=== PATIENT | female | born 1940 | race Two or more races ===

== ENCOUNTER 2018-07-17 12:54 | Outpatient (CLI) | payer OTHER | END 2018-07-17 13:07 | disposition home or self-care (01) | LOC: NUCLEAR 12:54 | DX: M81.0 Age-related osteoporosis without current pathological fracture (principal) ==

== ENCOUNTER → 2018-12-29 | Outpatient (CLI) | payer OTHER | END | disposition home or self-care (01) | LOC: NUCLEAR 07:00 | DX: C73 Malignant neoplasm of thyroid gland (principal) | CPT/HCPCS: 78815; A9552 ==

== ENCOUNTER 2019-01-29 12:15 | Inpatient (IN) | payer OTHER ==
[~2019-01-29] VITALS: Ht 157.5 cm; Wt 78.0 kg
[2019-01-29] MEDS ORDERED: TOPROL XL100 MG PO (14:26)
[2019-01-29] MEDS ORDERED: LISINOPRIL30 MG PO (14:26)
[2019-01-29] MEDS ORDERED: NORVASC2.5 M1 PO (14:26)
[2019-01-29] MEDS ORDERED: LASIX20 MG PO (14:26)
[2019-01-29] MEDS ORDERED: SYNTHROID112 MCG PO (14:26)
[2019-01-29] MEDS ORDERED: LIPITOR20 MG PO (14:27)
== END 2019-02-01 08:00 | disposition home or self-care (01) | DRG 349 ==
LOC: CIR.AMB 01-31 07:00 → O/R 01-31 07:00 → SURH 01-31 08:30 → SURG 01-31 08:30 → O/R 01-31 08:30 → SURG 01-31 11:42 → EDSTATUS 01-31 12:15 → SURH 01-31 12:15 → CIR.AMB 02-01 08:00 → O/R 02-01 08:00 → SURG 02-01 16:36
PROVIDERS: ADMIT Colon & Rectal Surgery
PROC: 0DBP7ZZ Excision of Rectum, Via Natural or Artificial Opening (ICD-10-PCS; principal; 2019-01-31 16:15)
DX: D12.8 Benign neoplasm of rectum (principal)

== ENCOUNTER 2019-05-17 07:10 | Outpatient (CLI) | payer OTHER ==
[~2019-05-17 07:10] MED LIST: LASIX20 MG PO; LIPITOR20 MG PO; LISINOPRIL30 MG PO; NORVASC2.5 M1 PO; SYNTHROID112 MCG PO; TOPROL XL100 MG PO
== END 2019-05-17 07:12 | disposition home or self-care (01) ==
LOC: TOM 07:10
DX: R91.1 Solitary pulmonary nodule (principal)
CPT/HCPCS: 71260; Q9965